=== PATIENT | female | born 1980 | race Caucasian/White ===

== ENCOUNTER 2018-06-06 06:59 | Emergency (ER) | payer BC, OTHER ==
--- NOTE | 2018-06-06 07:31 | EDM.PDOC ---
ED HPI GENERAL MEDICAL PROBLEM - General Chief Complaint: Back Pain or Injury Stated Complaint: BACK PAIN Time Seen by Provider: 06/06/18 07:07 - History of Present Illness INITIAL COMMENTS - FREE TEXT/NARRATIVE: HISTORY AND PHYSICAL: History of present illness: The patient is a 38-year-old female who is a long-standing history of lumbar back pain for which she has had an MRI here at our hospital in July 2017 as well as undergoing physical therapy for the last 8 months and who also sees a chiropractor on a regular basis for the last 1-1/2 years and presents with right flank pain that radiates to the right upper quadrant and right lower quadrant that started 2 days ago. The patient says she does a lot of lifting at work and she's been trying to do good body mechanics and she has no discrete injury that she is aware of and no fall. She says the pain started 2 days ago and it is very different than her typical lower back pain. It does not radiate to her leg and she has no aloe bladder disturbances no numbness or tingling or weakness in her lower extremities. She says the pain is much higher and is underneath the ribs on the right side and radiates to the front of her abdomen in the right upper and right lower quadrants. The patient says she thought maybe she had a UTI and she has had many in the past but none recently. The patient also tells me she has had loose stools/diarrhea for the last 2-3 weeks but it is not watery black or bloody. She has not followed up with a provider at [facility] for these symptoms. The patient says she has not taking any [id number] pain medications as she prefers not to use them and uses just conservative symptomatic care. She saw her chiropractor 2 days ago who thought it was more muscular and treated her appropriately for that. She says that it has not improved and she is here for evaluation as she is concerned it is something different as this is not her typical lumbar back pain. Her MRI from July 2017 was reviewed by me and discussed with her. It revealed a small disc bulge at L4-L5 and a moderate disc bulge at L5-S1 with more prominence to the right side. She says that is why she is doing the physical therapy and she has this pain on a regular basis but why she is here today is not for that as the discomfort she is experiencing is different. She has no frequency urgency or hematuria no nausea vomiting fever or chills. She has a history of a bilateral tubal ligation Review of systems: As per history of present illness and below otherwise all systems reviewed and negative. Past medical history: As per history of present illness and as reviewed below otherwise noncontributory. Surgical history: As per history of present illness and as reviewed below otherwise noncontributory. Social history: No reported history of drug or alcohol abuse. Family history: As per history of present illness and as reviewed below otherwise noncontributory. Physical exam: General: Well-developed well-nourished female who is nontoxic and ambulated into the ED without distress or assistance. Vital signs are noted by me HEENT: Atraumatic, normocephalic,, negative for conjunctival pallor or scleral icterus, mucous membranes moist, throat clear, neck supple, nontender, trachea midline. Lungs: Clear to auscultation, breath sounds equal bilaterally, chest nontender. Heart: S1S2, regular rate and rhythm no overt murmurs Abdomen: Soft, nondistended, bowel sounds are slightly hypoactive. There is some mild tenderness on deep palpation in the right upper quadrant and left lower quadrant on palpation but only minimal tenderness in the right lower quadrant. I'm unable to reproduce the pain exactly on palpation. On palpation of the left flank area I am unable to reproduce any pain as well. Negative for masses or hepatosplenomegaly. Negative for costovertebral tenderness. Pelvis: Stable nontender. Genitourinary: Deferred. Rectal: Deferred. Extremities: Atraumatic, negative for cords or calf pain. Neurovascular unremarkable. Full range of motion without defects or deficits Neuro: Awake, alert, oriented. Cranial nerves II through XII unremarkable. Cerebellum unremarkable. Motor and sensory unremarkable throughout. Exam nonfocal. Dorsi and plantar flexion is intact 5/5 inclusive of the great toe bilaterally and patellar reflexes are +2 over 4 bilaterally. Gait is intact. Patient does move slowly with position changes due to discomfort in her lumbar back which she says is not new or different. Inversion and eversion of the feet is intact. Back: There are no midline step-offs tenderness defects of the thoracic or lumbar spine no posterior rib tenderness or posterior pelvis tenderness. On palpation of the right flank area I am unable to reproduce any discomfort and she has no discrete CVA tenderness there. Diagnostics: UA with reflex culture CBC CMP CT scan of the abdomen and pelvis Therapeutics: Patient declines IV fluids and pain management at this time of dictation of the initial H&P Patient and spouse at bedside are aware of all testing results and I will give her a prescription for Norflex that she can try at home as needed as this is likely external and muscular. I've advised her to discuss this new pain with her physical therapist and her chiropractor and I will give her the tools to collect a stool at home and bring to the lab for outpatient testing and she can follow-up with her provider at [facility] Dr. Ortiz. I've advised her to treat this symptomatically and advised her on reasons to return. I also told her that if any of the anterior abdominal pain persists that she may need more testing on her gallbladder which she would need to do as an outpatient and she states understanding Impression: Right flank/thoracic back pain with history of lumbar back issues stable Definitive disposition and diagnosis as appropriate pending reevaluation and review of above. Lower back Pain Score (Numeric/FACES): 4 - Related Data Allergies Allergy/AdvReac Type Severity Reaction Status Date / Time codeine Allergy Cannot Verified 06/06/18 07:09 Remember Home Meds: Home Meds . [No Known Home Meds] 06/06/18 [History] Past Medical History - Infectious Disease History Infectious Disease History: Reports: Chicken Pox - Past Surgical History Female Surgical History: Reports: D&C, Tubal Ligation Social & Family History - Family History Family Medical History: Noncontributory - Tobacco Use Smoking Status *Q: Never Smoker - Caffeine Use Caffeine Use: Reports: Coffee - Recreational Drug Use Recreational Drug Use: No ED ROS GENERAL - Review of Systems Review Of Systems: ROS reveals no pertinent complaints other than HPI. ED EXAM, GENERAL - Physical Exam Exam: See Below (See dictation) Course - Vital Signs Last Recorded V/S: Last Vital Signs Temp 36.2 C 06/06/18 07:11 Pulse 75 06/06/18 07:11 Resp 16 06/06/18 07:11 BP 137/54 L 06/06/18 07:11 Pulse Ox 98 06/06/18 07:11 - Orders/Labs/Meds Orders: Active Orders 24 hr Category Date Time Status Communication Order [RC] STAT Care 06/06/18 08:35 Ordered Labs: Laboratory Tests 06/06/18 06/06/18 06/06/18 Range/Units 07:32 07:35 07:35 WBC 6.49 (4.0-11.0) K/uL RBC 4.55 (4.30-5.90) M/uL Hgb 14.0 (12.0-16.0) g/dL Hct 41.6 (36.0-46.0) % MCV 91.4 (80.0-98.0) fL MCH 30.8 (27.0-32.0) pg MCHC 33.7 (31.0-37.0) g/dL RDW Std Deviation 42.1 (28.0-62.0) fl RDW Coeff of Adalberto 13 (11.0-15.0) % Plt Count 533 H (150-400) K/uL MPV 8.70 (7.40-12.00) fL Neut % (Auto) 60.5 (48.0-80.0) % Lymph % (Auto) 22.8 (16.0-40.0) % Gilliam % (Auto) 13.6 (0.0-15.0) % Eos % (Auto) 2.6 (0.0-7.0) % Baso % (Auto) 0.5 (0.0-1.5) % Neut # (Auto) 3.9 (1.4-5.7) K/uL Lymph # (Auto) 1.5 (0.6-2.4) K/uL Gilliam # (Auto) 0.9 H (0.0-0.8) K/uL Eos # (Auto) 0.2 (0.0-0.7) K/uL Baso # (Auto) 0.0 (0.0-0.1) K/uL Sodium 135 L (136-145) mmol/L Potassium 3.8 (3.5-5.1) mmol/L Chloride 102 (98-107) mmol/L Carbon Dioxide 27.4 (21.0-32.0) mmol/L BUN 8 (7.0-18.0) mg/dL Creatinine 1.0 (0.6-1.0) mg/dL Est Cr Clr Drug Dosing 62.48 mL/min Estimated GFR (MDRD) > 60.0 ml/min Glucose 88 (74-106) mg/dL Calcium 8.7 (8.5-10.1) mg/dL Total Bilirubin 0.4 (0.2-1.0) mg/dL AST 14 L (15-37) IU/L ALT 20 (14-63) IU/L Alkaline Phosphatase 57 (46-116) U/L Total Protein 7.2 (6.4-8.2) g/dL Albumin 3.8 (3.4-5.0) g/dL Globulin 3.4 (2.6-4.0) g/dL Albumin/Globulin Ratio 1.1 (0.9-1.6) Urine Color YELLOW Urine Appearance CLEAR Urine pH 5.5 (5.0-8.0) Ur Specific [place] 1.010 (1.001-1.035) Urine Protein NEGATIVE (NEGATIVE) mg/dL Urine Glucose (UA) NEGATIVE (NEGATIVE) mg/dL Urine Ketones NEGATIVE (NEGATIVE) mg/dL Urine Occult Blood NEGATIVE (NEGATIVE) Urine Nitrite NEGATIVE (NEGATIVE) Urine Bilirubin NEGATIVE (NEGATIVE) Urine Urobilinogen 0.2 (<2.0) EU/dL Ur Leukocyte Esterase NEGATIVE (NEGATIVE) Departure - Departure Time of Disposition: 08:37 Disposition: Home, Self-Care 01 Condition: Good Clinical Impression: Right flank pain - Discharge Information Referrals: Allan Ortiz MD [Primary Care Provider] - Forms: ED Department Discharge Additional Instructions: The following information is given to patients seen in the emergency department who are being discharged to home. This information is to outline your options for follow-up care. We provide all patients seen in our emergency department with a follow-up referral. The need for follow-up, as well as the timing and circumstances, are variable depending upon the specifics of your emergency department visit. If you don't have a primary care physician on staff, we will provide you with a referral. We always advise you to contact your personal physician following an emergency department visit to inform them of the circumstance of the visit and for follow-up with them and/or the need for any referrals to a consulting specialist. The emergency department will also refer you to a specialist when appropriate. This referral assures that you have the opportunity for followup care with a specialist. All of these measure are taken in an effort to provide you with optimal care, which includes your followup. Under all circumstances we always encourage you to contact your private physician who remains a resource for coordinating your care. When calling for followup care, please make the office aware that this follow-up is from your recent emergency room visit. If for any reason you are refused follow-up, please contact the emergency department at and ask to speak to the emergency department charge nurse. [address] [place] [address] Please contact her provider at [facility] for follow-up care and discuss today's ER visit with your physical therapist to adjust your treatment plan to include this flank area. Use Norflex as prescribed and as needed but only take when you're home. Collect a stool sample and bring to outpatient lab as we discussed for further testing and care per your provider in the clinic. Return to ER as needed and as discussed and use [id number] symptomatic care/ measures as we discussed an as needed - My Orders Last 24 Hours: My Active Orders 06/06/18 08:35 Communication Order [RC] STAT - Assessment/Plan Last 24 Hours: My Active Orders 06/06/18 08:35 Communication Order [RC] STAT
[2018-06-06 08:17] LABS: CHLORIDE,CL 102 mmol/L (98-107); SODIUM,NA 135 mmol/L (136-145)
--- NOTE | 2018-06-06 08:27 | CT ---
INDICATION: Abdominal pain. COMPARISON: None. TECHNIQUE: CT abdomen and pelvis without intravenous or oral contrast; coronal and sagittal reformats. FINDINGS: Benign calcified granuloma right lung base. No abnormal intra pulmonary nodular densities are identified. No evidence of pleural effusion. No focal hepatic or splenic pathology. No pancreatic pathology. Gallbladder is unremarkable. No adrenal pathology. No kidneys stones or obstructive uropathy. No retroperitoneal lymphadenopathy. No evidence of abdominal or pelvic ascites. Normal appendix. CT study of the pelvis is unremarkable. IMPRESSION: 1. Calcified granuloma right lung base. 2. Normal appendix. 3. No kidney stones or obstructive uropathy. 4. Negative unenhanced CT abdomen and pelvis. Please note that all CT scans at this facility use dose modulation, iterative reconstruction, and/or weight-based dosing when appropriate to reduce radiation dose to as low as reasonably achievable. Dictated by Amador Acosta MD @ Jun 06 2018 8:23AM Signed by Dr. Amador Acosta @ Jun 06 2018 8:26AM
== END 2018-06-06 08:54 | disposition home or self-care (01) ==
LOC: MW.ED 06:59
DX: R10.9 Unspecified abdominal pain (principal); Z88.5 Allergy status to narcotic agent
CPT/HCPCS: 36415; 74176; 74176-26; 80053; 81003; 85025; 99284; 99284-25